=== PATIENT | male | born 1995 | race Caucasian/White ===

== ENCOUNTER 2016-09-12 12:40 | Emergency (ER) | payer OTHER ==
[2016-09-12 12:53] VITALS: RESP 16; TEMP 99
[2016-09-12] MEDS ORDERED: HYDROmorphONE/DILAUDID 1 MG/ML SYR IVP ONE ×2 (13:28→15:57)
[2016-09-12] MEDS ORDERED: NS 1,000 ML IV ONE (13:28)
[2016-09-12 13:35] LABS: % IMMATURE GRANULYOCYTES 0.3 % (0.0-1.1); ABSOLUTE IMMATURE GRANULOCYTES 0.02 10^3/uL (0.00-0.10); ADD DIFF? NO; ADD MORPH? NO; ADD SCAN? NO; ATYPICAL LYMPHOCYTE FLAG 90 (0-99); FRAGMENT RBC FLAG 0 (0-99); HEMATOCRIT 45.8 % (40.0-51.0); HEMOGLOBIN 15.9 g/dL (13.7-17.5); LEFT SHIFT FLG 0 (0-99); LIPEMIA HEMOLYSIS FLAG 90 (0-99); MEAN CELL HEMOGLOBIN 31.2 pg (27.9-34.1); MEAN CELL HEMOGLOBIN CONCENTR. 34.7 g/dL (32.4-36.7); MEAN CELL VOLUME 89.8 fL (81.5-99.8); PLATELET CLUMPS FLAG 0 (0-99); PLATELET COUNT 209 10^3/uL (150-400); RED CELL DISTRIBUTION WIDTH 12.4 % (11.5-15.2)
[2016-09-12 13:41] LABS: ALANINE AMINOTRANSFERASE 33 IU/L (21-72); ALBUMIN 4.7 g/dL (3.5-5.0); ALKALINE PHOSPHATASE 92 IU/L (38-126); ANION GAP 13 mEq/L (8-16); ASPARTATE AMINOTRANSFERASE 30 IU/L (17-59); BILIRUBIN,TOTAL 1.4 mg/dL (0.1-1.4); BILIRUBIN-CONJUGATED 0.5 mg/dL (0.0-0.5); BILIRUBIN-UNCONJUGATED 0.9 mg/dL (0.0-1.1); CALCIUM 9.6 mg/dL (8.5-10.4); CARBON DIOXIDE 26 mEq/l (22-31); CHLORIDE 101 mEq/L (97-110); CREATININE 0.8 mg/dL (0.7-1.3); GLOMERULAR FILTRATION RATE > 60; GLUCOSE 85 mg/dL (70-100); SODIUM 140 mEq/L (134-144)
[2016-09-12] MEDS ORDERED: IOPAMIDOL (ISOVUE-300) 100 ML BTL IV ONE (14:12)
--- NOTE | 2016-09-12 15:05 | EDPHY ---
H & P Stated Complaint: abd pain Time Seen by Provider: 09/12/16 13:00 HPI/ROS: Chief complaint: Abdominal pain, rectal pain History of present illness: This is a 21-year-old male with a history of Crohn' s disease who presents to the emergency department for evaluation of abdominal pain and rectal pain. Patient reports the onset of symptoms over the last day. He states the pain is in the right lower aspect of the abdomen. He feels associated pressure in the rectal region. He denies precipitating factors. He denies alleviating factors. Patient denies other associated signs or symptoms including no fevers, no nausea, vomiting or diarrhea, no urinary symptoms. He has seen a housekeeper cleaning cooking once in the [facility] but does not remember who it was, he is not followed regularly here. He is primarily followed by a doctor back on the [facility] where he is from. Review of systems: A 10 point review of systems was obtained and other than described above was negative - Personal History Current Tetanus Diphtheria and Acellular Pertussis (TDAP): Yes - Medical/Surgical History PMH: Crohn's Significant resection of the bowel including removal of the appendix secondary to Crohn's Hx Asthma: No Hx Chronic Respiratory Disease: No Hx Diabetes: No Hx Cardiac Disease: No Hx Renal Disease: No Hx Cirrhosis: No Hx Alcoholism: No Hx HIV/AIDS: No Hx Splenectomy or Spleen Trauma: No - Social History Smoking Status: Never smoked - Physical Exam Exam: General Appearance: Alert, nontoxic. Eyes: Pupils equal and round no pallor or injection. ENT, Mouth: Mucous membranes moist. Respiratory: There are no retractions, lungs are clear to auscultation. Cardiovascular: Regular rate and rhythm. Gastrointestinal: Bowel sounds are normal. Abdomen is soft and nondistended. There is tenderness in the right lower quadrant. No peritoneal signs. Perianal area is unremarkable. Neurological: Alert and oriented x4. Strength and sensation intact and symmetrical. Skin: Warm and dry, no rashes. Musculoskeletal: Neck is supple nontender. Extremities are symmetrical, full range of motion. Psychiatric: Patient is oriented X 3, there is no agitation. Constitutional: Initial Vital Signs Temperature (C) 37.2 C 09/12/16 12:50 Heart Rate 62 09/12/16 12:50 Respiratory Rate 16 09/12/16 12:50 O2 Sat (%) 97 09/12/16 12:50 O2 Delivery Mode Room Air Allergies/Adverse Reactions: peanut Allergy (Verified 09/12/16 12:53) shrimp Allergy (Verified 09/12/16 12:53) strawberry Allergy (Verified 09/12/16 12:53) Home Medications: Medication Instructions Recorded Hydrocodone/APAP 325 [[place] 1 tab PO Q6H #6 tab 09/12/16 5/325 (*)] Medical Decision Making - Diagnostics Imaging Results: Imaging Impressions Abdomen CT 09/12/16 13:46 Impression: 1. No bowel obstruction or pneumoperitoneum. 2. Stranding in the mesenteric fat in the right paracolic gutter lateral to the ascending colon without evidence of bowel obstruction or drainable abscess. Limited due to lack of oral contrast. 3. No urinary tract obstruction, hepatosplenomegaly, or definite focal fluid collection. 4. No perirectal fluid collection. 5. Consider additional follow-up with oral contrast, if clinically indicated. Findings and recommendations discussed with emergency department physician assistant manager retail, Jn Rosen PA-C at 1459 hours on September 12, 2016. Final report concurs with initial preliminary interpretation. Imaging: Discussed imaging studies w/ will call clerk Radiologist ED Course/Re-evaluation: Patient is discussed with my secondary supervising physician Dr. Carols Reyes. Patient presents to the emergency department for abdominal pain. On presentation he is nontoxic. He is afebrile and vital signs are stable. There is tenderness on palpation of the abdomen. Blood studies are largely unremarkable. Given history of Crohn's and his complicated surgical history a CT scan is pursued with findings as discussed above. At this time I believe patient is appropriate for outpatient management. Patient will be discharged home. Pain management is discussed. He is referred to Gastroenterology and asked to closely follow up for further evaluation and care. Return precautions are given. Patient voiced understanding and agreement with plan. Differential Diagnosis: Included but not limited to Crohn's flare, gastritis, gastroenteritis, biliary tract disease, pancreatitis, bowel obstruction, abscess formation - Data Points Laboratory Results: Laboratory Results 09/12/16 13:07 09/12/16 13:07 09/12/16 09/12/16 09/12/16 15:13 13:07 13:07 WBC 6.61 10^3/uL 10^3/uL (3.80-9.50) RBC 5.10 10^6/uL 10^6/uL (4.40-6.38) Hgb 15.9 g/dL g/dL (13.7-17.5) Hct 45.8 % % (40.0-51.0) MCV 89.8 fL fL (81.5-99.8) MCH 31.2 pg pg (27.9-34.1) MCHC 34.7 g/dL g/dL (32.4-36.7) RDW 12.4 % % (11.5-15.2) Plt Count 209 10^3/uL 10^3/uL (150-400) MPV 10.0 fL fL (8.7-11.7) Neut % (Auto) 59.3 % % (39.3-74.2) Lymph % (Auto) 28.3 % % (15.0-45.0) Desha % (Auto) 8.3 % % (4.5-13.0) Eos % (Auto) 3.2 % % (0.6-7.6) Baso % (Auto) 0.6 % % (0.3-1.7) Nucleat RBC Rel Count 0.0 % % (0.0-0.2) Absolute Neuts (auto) 3.92 10^3/uL 10^3/uL (1.70-6.50) Absolute Lymphs (auto) 1.87 10^3/uL 10^3/uL (1.00-3.00) Absolute Monos (auto) 0.55 10^3/uL 10^3/uL (0.30-0.80) Absolute Eos (auto) 0.21 10^3/uL 10^3/uL (0.03-0.40) Absolute Basos (auto) 0.04 10^3/uL 10^3/uL (0.02-0.10) Absolute Nucleated RBC 0.00 10^3/uL 10^3/uL (0-0.01) Immature Gran % 0.3 % % (0.0-1.1) Immature Gran # 0.02 10^3/uL 10^3/uL (0.00-0.10) Sodium 140 mEq/L mEq/L (134-144) Potassium 4.0 mEq/L mEq/L (3.5-5.2) Chloride 101 mEq/L mEq/L (97-110) Carbon Dioxide 26 mEq/l mEq/l (22-31) Anion Gap 13 mEq/L mEq/L (8-16) BUN 19 mg/dL mg/dL (7-23) Creatinine 0.8 mg/dL mg/dL (0.7-1.3) Estimated GFR > 60 Glucose 85 mg/dL mg/dL (70-100) Calcium 9.6 mg/dL mg/dL (8.5-10.4) Total Bilirubin 1.4 mg/dL mg/dL (0.1-1.4) Conjugated Bilirubin 0.5 mg/dL mg/dL (0.0-0.5) Unconjugated Bilirubin 0.9 mg/dL mg/dL (0.0-1.1) AST 30 IU/L IU/L (17-59) ALT 33 IU/L IU/L (21-72) Alkaline Phosphatase 92 IU/L IU/L (38-126) Total Protein 8.0 g/dL g/dL (6.3-8.2) Albumin 4.7 g/dL g/dL (3.5-5.0) Lipase 133.0 IU/L IU/L (23-300) Urine Color PALE YELLOW Urine Appearance CLEAR Urine pH 6.0 (5.0-7.5) Ur Specific [place] 1.026 (1.002-1.030) Urine Protein NEGATIVE (NEGATIVE) Urine Ketones NEGATIVE (NEGATIVE) Urine Blood NEGATIVE (NEGATIVE) Urine Nitrate NEGATIVE (NEGATIVE) Urine Bilirubin NEGATIVE (NEGATIVE) Urine Urobilinogen NEGATIVE EU EU (0.2-1.0) Ur Leukocyte Esterase NEGATIVE (NEGATIVE) Urine RBC 1-3 /hpf /hpf (0-3) Urine WBC 0-1 /hpf /hpf (0-3) Ur Epithelial Cells NONE SEEN /lpf /lpf (NONE-1+) Urine Glucose NEGATIVE (NEGATIVE) Medications Given: Discontinued Medications Hydromorphone HCl (Dilaudid) 1 mg IVP EDNOW ONE Stop: 09/12/16 13:29 Last Admin: 09/12/16 13:40 Dose: Not Given Hydromorphone HCl (Dilaudid) 0.5 mg IVP EDNOW ONE Stop: 09/12/16 15:58 Last Admin: 09/12/16 16:14 Dose: 0.5 mg Sodium Chloride (Ns) 1,000 mls @ 0 mls/hr IV ONCE ONE PRN Reason: Wide Open Stop: 09/12/16 13:29 Last Admin: 09/12/16 13:40 Dose: 1,000 mls Departure - Departure Disposition: Home, Routine, Self-Care Clinical Impression: Abdominal pain Qualifiers: Abdominal location: right lower quadrant Qualified Code(s): R10.31 - Right lower quadrant pain Condition: Good Instructions: Abdominal Pain (ED) Additional Instructions: Follow-up with gastroenterology for continued evaluation and care If symptoms worsen or new symptoms develop return to the emergency room for recheck Referrals: NONE *PRIMARY CARE P,. [Primary Care Provider] - As per Instructions Luigi Carbajal MD [Medical Doctor] - As per Instructions Prescriptions: Hydrocodone/APAP 5/325 [[place] 5/325 (*)] 1 tab PO Q6H #6 tab
[2016-09-12 15:32] LABS: COLOR PALE YELLOW; LEUKOCYTE ESTERASE,URINE NEGATIVE (NEGATIVE); NITRITE,URINE NEGATIVE (NEGATIVE)
[2016-09-12 15:46] LABS: WBC,URINE 0-1 /hpf (0-3)
[2016-09-12 16:38] VITALS: BP 139/71; PULSE 77; O2SAT 96
== END 2016-09-12 16:38 | disposition home or self-care (01) ==
DX: R10.31 Right lower quadrant pain (principal); Z91.010 Allergy to peanuts
CPT/HCPCS: 96374; J1170; Q9967

== ENCOUNTER 2017-06-07 18:49 | Emergency (ER) | payer OTHER ==
[2017-06-07 18:58] VITALS: RESP 16
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
[2017-06-07] MEDS ORDERED: NS 1,000 ML IV ONE (19:19)
[2017-06-07 19:34] LABS: PLATELET COUNT 237 10^3/uL (150-400)
[2017-06-07] MEDS ORDERED: LORAZEPAM 1 MG PREPACK#4 BTL TAKEHOME ONE (21:13)
[2017-06-07 21:23] VITALS: BP 152/84; PULSE 81; TEMP 98.8; O2SAT 96
== END 2017-06-07 21:23 | disposition home or self-care (01) ==
DX: F41.9 Anxiety disorder, unspecified (principal); R45.1 Restlessness and agitation; E86.9 Volume depletion, unspecified; Z91.010 Allergy to peanuts
CPT/HCPCS: 80305

== ENCOUNTER 2017-08-28 01:00 | Emergency (ER) | payer OTHER ==
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
[2017-08-28 01:22] LABS: PLATELET COUNT 257 10^3/uL (150-400)
[2017-08-28 11:17] VITALS: BP 128/78
== END 2017-08-28 11:34 ==
DX: R45.1 Restlessness and agitation (principal); Z91.010 Allergy to peanuts
CPT/HCPCS: 80305; G0480